=== PATIENT | female | born 1945 | race African-American/Black ===

== ENCOUNTER 2016-10-25 01:18 | Emergency (ER) | payer MEDICARE ==
[~2016-10-25] VITALS: Ht 167.6 cm; Wt 81.0 kg
[~2016-10-25 01:18] MED LIST: MOTRIN; WARF1TAB46
[2016-10-25] MEDS ORDERED: ACETAMINOPHEN 650MG/20.3ML UDC PO ONE (03:00)
[2016-10-25] MEDS ORDERED: TRAMADOL 50MG TABLET PO ONE (03:00)
[2016-10-25 07:37] VITALS: BP 145/85
[2016-10-25] MEDS ORDERED: ACETAMINOPHEN 325MG TABLET PO ONE (09:45)
== END 2016-10-25 13:45 | disposition home or self-care (01) ==
LOC: ER 01:26
DX: M79.604 Pain in right leg (principal); I10 Essential (primary) hypertension; G62.9 Polyneuropathy, unspecified; Z86.718 Personal history of other venous thrombosis and embolism; Z79.01 Long term (current) use of anticoagulants; Z88.2 Allergy status to sulfonamides; Z88.1 Allergy status to other antibiotic agents; Z88.5 Allergy status to narcotic agent; Z88.8 Allergy status to other drugs, medicaments and biological substances; Z88.6 Allergy status to analgesic agent
CPT/HCPCS: 93971; 99284

== ENCOUNTER 2017-01-01 20:08 | Emergency (ER) | payer MEDICARE ==
[~2017-01-01] VITALS: Ht 170.2 cm; Wt 73.0 kg
[2017-01-01] MEDS ORDERED: KETOROLAC 60MG/2ML VIAL IM ONE (22:15)
[2017-01-02] MEDS ORDERED: KETOROLAC 60MG/2ML VIAL IM ONE (09:30)
[2017-01-04 13:59] VITALS: BP 132/66
== END 2017-01-04 14:11 | disposition home or self-care (01) ==
LOC: ER 20:24
DX: M79.605 Pain in left leg (principal); M79.604 Pain in right leg; Z59.0 Homelessness; I10 Essential (primary) hypertension; Z90.49 Acquired absence of other specified parts of digestive tract; Z88.0 Allergy status to penicillin; Z79.01 Long term (current) use of anticoagulants; Z88.2 Allergy status to sulfonamides; Z88.6 Allergy status to analgesic agent; Z88.1 Allergy status to other antibiotic agents
CPT/HCPCS: 93970; 96372; 99284; J1885

== ENCOUNTER 2017-05-24 16:55 | Emergency (ER) | payer MEDICARE ==
[~2017-05-24] VITALS: Ht 170.2 cm; Wt 93.0 kg
[2017-05-24] MEDS ORDERED: KETOROLAC 30MG/ML VIAL IV ONE (18:45)
[2017-05-24 19:37] LABS: BASOPHILS % 0.9 % (0.0-2.0); EOSINOPHILS % 2.2 % (0.0-5.0); HEMATOCRIT. 30.7 % (36.0-48.0); HEMOGLOBIN. 10.1 g/dL (12.0-16.0); LYMPHOCYTES % 31.8 % (20.0-50.0); MEAN CORPUSCULAR HEMOGLOBIN 28.3 pg (28.0-32.0); MEAN CORPUSCULAR VOLUME 85.7 fL (81.0-99.0); MEAN PLATELET VOLUME 7.6 fl (7.4-10.4); NEUTROPHILS % 55.1 % (40.0-76.0); PLATELET 206 x1000/uL (130-400); RED BLOOD CELL COUNT 3.58 mill/uL (4.2-5.4); RED CELL DISTRIBUTION WIDTH 16.6 % (11.6-14.6)
[2017-05-24 19:43] LABS: INR 1.1; PROTHROMBIN TIME 11.8 sec (9.4-11.6)
[2017-05-24 19:49] LABS: CHLORIDE 112 mEq/L (98-107)
[2017-05-24 19:57] LABS: CARBON DIOXIDE 27 mEq/L (21-32); TROPONIN I < 0.02 ng/mL (0.00-0.04)
[2017-05-24 23:15] VITALS: BP 122/77
== END 2017-05-24 23:15 | disposition home or self-care (01) ==
LOC: ER 18:08
DX: I82.402 Acute embolism and thrombosis of unspecified deep veins of left lower extremity (principal); M25.562 Pain in left knee; G89.29 Other chronic pain; M25.561 Pain in right knee; E11.40 Type 2 diabetes mellitus with diabetic neuropathy, unspecified; I20.9 Angina pectoris, unspecified; I51.7 Cardiomegaly; M17.0 Bilateral primary osteoarthritis of knee; I10 Essential (primary) hypertension; Z88.1 Allergy status to other antibiotic agents; Z88.2 Allergy status to sulfonamides; Z88.6 Allergy status to analgesic agent; Z88.8 Allergy status to other drugs, medicaments and biological substances; Z79.01 Long term (current) use of anticoagulants; Z90.49 Acquired absence of other specified parts of digestive tract; Z86.711 Personal history of pulmonary embolism
CPT/HCPCS: 36415; 71010; 73560; 80053; 83880; 84484; 85025; 85610; 86850; 86900; 86901; 93005; 93970; 96374; 99285; J1885

== ENCOUNTER 2017-05-31 18:19 | Emergency (ER) | payer MEDICARE, MEDICAID ==
[~2017-05-31] VITALS: Ht 165.1 cm; Wt 75.0 kg
[2017-05-31 18:25] VITALS: BP 122/88
== END 2017-05-31 19:24 | disposition left against medical advice (07) ==
LOC: ER 18:19
DX: Z53.21 Procedure and treatment not carried out due to patient leaving prior to being seen by health care provider (principal); E11.9 Type 2 diabetes mellitus without complications; I20.9 Angina pectoris, unspecified; I10 Essential (primary) hypertension; Z88.0 Allergy status to penicillin; Z88.2 Allergy status to sulfonamides; Z88.3 Allergy status to other anti-infective agents; Z88.6 Allergy status to analgesic agent; Z88.8 Allergy status to other drugs, medicaments and biological substances; Z86.73 Personal history of transient ischemic attack (TIA), and cerebral infarction without residual deficits; Z90.49 Acquired absence of other specified parts of digestive tract; Z86.711 Personal history of pulmonary embolism

== ENCOUNTER 2017-07-22 22:15 | Emergency (ER) | payer MEDICARE, MEDICAID ==
[~2017-07-22] VITALS: Ht 167.6 cm; Wt 79.0 kg
[2017-07-23] MEDS ORDERED: KETOROLAC 60MG/2ML VIAL IM ONE (02:00)
[2017-07-23] MEDS ORDERED: HYDROCODONE/ACETAMINOPHEN 5/325MG TABLET PO ONE (02:15)
[2017-07-23 11:00] VITALS: BP 144/82
== END 2017-07-23 11:20 | disposition home or self-care (01) ==
LOC: ER 22:15
DX: M79.604 Pain in right leg (principal); M79.605 Pain in left leg; M79.89 Other specified soft tissue disorders; I10 Essential (primary) hypertension; I20.9 Angina pectoris, unspecified; E11.9 Type 2 diabetes mellitus without complications; Z79.01 Long term (current) use of anticoagulants; Z86.73 Personal history of transient ischemic attack (TIA), and cerebral infarction without residual deficits; Z88.0 Allergy status to penicillin; Z86.718 Personal history of other venous thrombosis and embolism; Z88.2 Allergy status to sulfonamides; Z88.8 Allergy status to other drugs, medicaments and biological substances; Z90.49 Acquired absence of other specified parts of digestive tract
CPT/HCPCS: 93005; 93970; 96372; 99284; J1885

== ENCOUNTER 2017-07-26 06:19 | Emergency (ER) | payer MEDICARE, MEDICAID ==
[~2017-07-26] VITALS: Ht 167.6 cm; Wt 77.2 kg
[2017-07-26] MEDS ORDERED: TRAMADOL 50MG TABLET PO ONE (07:00)
[2017-07-26 07:17] VITALS: BP 136/75
== END 2017-07-26 07:40 | disposition left against medical advice (07) ==
LOC: ER 06:19
DX: I82.401 Acute embolism and thrombosis of unspecified deep veins of right lower extremity (principal); I11.9 Hypertensive heart disease without heart failure; E11.9 Type 2 diabetes mellitus without complications; Z86.711 Personal history of pulmonary embolism; Z79.01 Long term (current) use of anticoagulants; Z90.49 Acquired absence of other specified parts of digestive tract; Z88.6 Allergy status to analgesic agent; Z88.5 Allergy status to narcotic agent; Z88.0 Allergy status to penicillin; Z88.2 Allergy status to sulfonamides
CPT/HCPCS: 99283

== ENCOUNTER 2017-08-29 21:53 | Emergency (ER) | payer MEDICARE, MEDICAID ==
[~2017-08-29] VITALS: Ht 167.6 cm; Wt 93.0 kg
[2017-08-30] MEDS ORDERED: APIXABAN 5 MG TABLET PO STA (01:39)
[2017-08-30] MEDS ORDERED: KETOROLAC 60MG/2ML VIAL IM ONE (01:45)
[2017-08-30] MEDS ORDERED: FUROSEMIDE 40MG TABLET PO ONE (01:45)
[2017-08-30 02:17] VITALS: BP 162/84
== END 2017-08-30 03:41 | disposition home or self-care (01) ==
LOC: ER 21:53
DX: G89.29 Other chronic pain (principal); I82.509 Chronic embolism and thrombosis of unspecified deep veins of unspecified lower extremity; E11.9 Type 2 diabetes mellitus without complications; I11.0 Hypertensive heart disease with heart failure; I50.9 Heart failure, unspecified; Z86.711 Personal history of pulmonary embolism; Z86.73 Personal history of transient ischemic attack (TIA), and cerebral infarction without residual deficits; Z79.01 Long term (current) use of anticoagulants; Z90.49 Acquired absence of other specified parts of digestive tract; Z88.6 Allergy status to analgesic agent; Z88.3 Allergy status to other anti-infective agents; Z88.5 Allergy status to narcotic agent; Z88.0 Allergy status to penicillin; Z88.2 Allergy status to sulfonamides
CPT/HCPCS: 96372; 99283; J1885

== ENCOUNTER 2017-08-30 06:49 | Emergency (ER) | payer MEDICARE, MEDICAID | END 2017-08-30 07:40 | disposition home or self-care (01) | LOC: ER 07:17 | DX: M79.606 Pain in leg, unspecified (principal); Z53.21 Procedure and treatment not carried out due to patient leaving prior to being seen by health care provider | CPT/HCPCS: J7040; Z7610 ==

== ENCOUNTER 2018-03-26 22:29 | Emergency (ER) | payer MEDICARE, MEDICAID ==
[~2018-03-26] VITALS: Ht 167.6 cm; Wt 82.0 kg
[2018-03-27] MEDS ORDERED: IBUPROFEN 600MG TABLET PO ONE (00:15)
[2018-03-27 01:48] LABS: BASOPHILS % 0.5 % (0.0-2.0); EOSINOPHILS % 1.6 % (0.0-5.0); HEMATOCRIT. 34.2 % (36.0-48.0); HEMOGLOBIN. 11.3 g/dL (12.0-16.0); LYMPHOCYTES % 24.5 % (20.0-50.0); MEAN CORPUSCULAR HEMOGLOBIN 27.2 pg (28.0-32.0); MEAN CORPUSCULAR VOLUME 82.6 fL (81.0-99.0); MEAN PLATELET VOLUME 7.6 fl (7.4-10.4); MONOCYTES % 9.8 % (2.0-8.0); NEUTROPHILS % 63.6 % (40.0-76.0); PLATELET 285 x1000/uL (130-400); RED BLOOD CELL COUNT 4.14 mill/uL (4.2-5.4); RED CELL DISTRIBUTION WIDTH 16.2 % (11.6-14.6)
[2018-03-27 01:52] LABS: CHLORIDE 105 mEq/L (98-107)
[2018-03-27] MEDS ORDERED: POTASSIUM CHLORIDE 20MEQ TABLET SR PO ONE (02:00)
[2018-03-27 04:22] VITALS: BP 148/85
== END 2018-03-27 05:07 | disposition home or self-care (01) ==
LOC: ER 22:29
DX: M79.1 Myalgia (principal); E87.6 Hypokalemia; I11.9 Hypertensive heart disease without heart failure; E11.9 Type 2 diabetes mellitus without complications; Z86.718 Personal history of other venous thrombosis and embolism; Z86.711 Personal history of pulmonary embolism; Z88.0 Allergy status to penicillin; Z88.2 Allergy status to sulfonamides; Z90.49 Acquired absence of other specified parts of digestive tract; Z79.01 Long term (current) use of anticoagulants; Z79.84 Long term (current) use of oral hypoglycemic drugs; Z86.73 Personal history of transient ischemic attack (TIA), and cerebral infarction without residual deficits; Z88.3 Allergy status to other anti-infective agents; Z88.5 Allergy status to narcotic agent
CPT/HCPCS: 36415; 80053; 85025; 99284

== ENCOUNTER 2018-03-27 07:19 | Emergency (ER) | payer MEDICARE, MEDICAID ==
[~2018-03-27] VITALS: Ht 170.2 cm; Wt 88.0 kg
[2018-03-27 10:14] VITALS: BP 131/88
== END 2018-03-27 12:32 | disposition left against medical advice (07) ==
LOC: ER 07:19
DX: Z53.21 Procedure and treatment not carried out due to patient leaving prior to being seen by health care provider (principal)

== ENCOUNTER 2019-01-08 15:24 | Emergency (ER) | payer MEDICARE, MEDICAID ==
[~2019-01-08] VITALS: Ht 160 cm; Wt 101.0 kg
[2019-01-08 15:42] VITALS: BP 142/64
[2019-01-16] MEDS ORDERED: APIX5TAB MT (22:53)
== END 2019-01-08 18:58 | disposition left against medical advice (07) ==
LOC: ER 15:24
DX: F43.0 Acute stress reaction (principal); I11.9 Hypertensive heart disease without heart failure; Z86.73 Personal history of transient ischemic attack (TIA), and cerebral infarction without residual deficits; Z86.718 Personal history of other venous thrombosis and embolism; Z90.89 Acquired absence of other organs; Z79.84 Long term (current) use of oral hypoglycemic drugs; Z88.6 Allergy status to analgesic agent; Z88.5 Allergy status to narcotic agent; Z88.0 Allergy status to penicillin; Z88.2 Allergy status to sulfonamides; Z86.711 Personal history of pulmonary embolism; Z79.01 Long term (current) use of anticoagulants
CPT/HCPCS: 99281; 99284

== ENCOUNTER 2019-01-09 06:40 | Emergency (ER) | payer MEDICARE, MEDICAID ==
[~2019-01-09] VITALS: Ht 167.6 cm; Wt 91.0 kg
[2019-01-09 09:58] LABS: CLARITY URINE CLEAR (CLEAR); COLOR URINE YELLOW (YELLOW); KETONES URINE TRACE (NEGATIVE); LEUKOCYTE ESTERASE URINE NEGATIVE (NEGATIVE); NITRITE URINE NEGATIVE (NEGATIVE); OCCULT BLOOD URINE NEGATIVE (NEGATIVE); PH URINE 5.5 (4.5-8.0); PROTEIN URINE NEGATIVE (NEGATIVE); SPECIFIC GRAVITY URINE 1.026 (1.005-1.030); UROBILINOGEN URINE 0.2 E.U./dL (0.2-1.0)
[2019-01-09 12:09] VITALS: BP 140/101
[2019-01-16] MEDS ORDERED: APIX5TAB MT (22:53)
== END 2019-01-09 12:10 | disposition home or self-care (01) ==
LOC: ER 06:40
DX: Z00.00 Encounter for general adult medical examination without abnormal findings (principal); I10 Essential (primary) hypertension; Z90.49 Acquired absence of other specified parts of digestive tract; Z90.89 Acquired absence of other organs; Z86.718 Personal history of other venous thrombosis and embolism; Z88.2 Allergy status to sulfonamides; Z88.0 Allergy status to penicillin; Z88.5 Allergy status to narcotic agent; Z88.9 Allergy status to unspecified drugs, medicaments and biological substances; Z88.1 Allergy status to other antibiotic agents
CPT/HCPCS: 99282; 99283

== ENCOUNTER 2019-01-09 19:58 | Emergency (ER) | payer MEDICARE, MEDICAID ==
[~2019-01-09] VITALS: Ht 167.6 cm; Wt 94.0 kg
[2019-01-10] MEDS ORDERED: ACETAMINOPHEN 325MG TABLET PO ONE (02:00)
[2019-01-10 09:54] VITALS: BP 145/82
== END 2019-01-10 10:28 | disposition home or self-care (01) ==
LOC: ER 19:58
DX: M79.642 Pain in left hand (principal); M79.641 Pain in right hand
CPT/HCPCS: 99282

== ENCOUNTER 2019-01-10 12:37 | Emergency (ER) | payer MEDICARE, MEDICAID ==
[~2019-01-10] VITALS: Ht 167.6 cm; Wt 93.0 kg
[2019-01-11] MEDS ORDERED: ACETAMINOPHEN 325MG TABLET PO ONE ×2 (01:15→12:30)
[2019-01-11 01:46] LABS: HEMATOCRIT. 29.5 % (36.0-48.0); HEMOGLOBIN. 10.2 g/dL (12.0-16.0); MEAN CORPUSCULAR HEMOGLOBIN 30.8 pg (28.0-32.0); MEAN CORPUSCULAR VOLUME 89.3 fL (81.0-99.0); MEAN PLATELET VOLUME 7.3 fl (7.4-10.4); PLATELET 166 x1000/uL (130-400); RED BLOOD CELL COUNT 3.31 mill/uL (4.2-5.4)
[2019-01-11 01:56] LABS: CHLORIDE 108 mEq/L (98-107)
[2019-01-11] MEDS ORDERED: POTASSIUM CHLORIDE 20MEQ TABLET SR PO NR (02:15)
[2019-01-11] MEDS ORDERED: POTASSIUM CHLORIDE 20MEQ TABLET SR PO SCH (02:15)
[2019-01-11 02:42] LABS: PLATELET ESTIMATE NORMAL
[2019-01-11] MEDS ORDERED: POTASSIUM CHLORIDE 20MEQ TABLET SR PO ONE (06:30)
[2019-01-11 12:47] VITALS: BP 133/58
[2019-01-16] MEDS ORDERED: APIX5TAB MT (22:53)
== END 2019-01-11 17:00 | disposition home or self-care (01) ==
LOC: ER 12:37
DX: E87.6 Hypokalemia (principal); Z59.0 Homelessness
CPT/HCPCS: 36415; 73130; 80048; 84132; 99284

== ENCOUNTER 2019-03-04 22:45 | Emergency (ER) | payer MEDICARE, MEDICAID ==
[~2019-03-04 22:45] MED LIST changes: +APIX5TAB MT; -MOTRIN; -WARF1TAB46
== END 2019-03-05 01:30 | disposition left against medical advice (07) ==
LOC: ER 22:45
DX: Z53.21 Procedure and treatment not carried out due to patient leaving prior to being seen by health care provider (principal)

== ENCOUNTER 2019-04-19 21:20 | Emergency (ER) | payer MEDICARE, MEDICAID ==
[~2019-04-19] VITALS: Ht 165.1 cm; Wt 95.0 kg
[2019-04-19 21:46] VITALS: BP 118/74
[2019-04-20] MEDS ORDERED: ACETAMINOPHEN 325MG TABLET PO ONE (00:15)
== END 2019-04-20 07:03 | disposition home or self-care (01) ==
LOC: ER 21:20
DX: R07.89 Other chest pain (principal); M25.511 Pain in right shoulder; M25.512 Pain in left shoulder; Z59.0 Homelessness; Z88.8 Allergy status to other drugs, medicaments and biological substances; Z88.0 Allergy status to penicillin; Z88.2 Allergy status to sulfonamides; Z88.6 Allergy status to analgesic agent; Z88.5 Allergy status to narcotic agent; Z88.9 Allergy status to unspecified drugs, medicaments and biological substances; Z86.718 Personal history of other venous thrombosis and embolism; Z85.9 Personal history of malignant neoplasm, unspecified; Y08.89XA Assault by other specified means, initial encounter; Y93.89 Activity, other specified; Y92.89 Other specified places as the place of occurrence of the external cause; Y99.8 Other external cause status
CPT/HCPCS: 71111; 73030; 93005; 99283

== ENCOUNTER 2019-05-16 08:27 | Emergency (ER) | payer MEDICARE, MEDICAID | END 2019-05-16 09:05 | disposition left against medical advice (07) | LOC: ER 09:04 | DX: Z53.21 Procedure and treatment not carried out due to patient leaving prior to being seen by health care provider (principal) ==

== ENCOUNTER 2019-08-10 09:20 | Emergency (ER) | payer MEDICARE, MEDICAID ==
[~2019-08-10] VITALS: Ht 154.9 cm; Wt 80.0 kg
[2019-08-10] MEDS ORDERED: IBUPROFEN 600MG TABLET PO STA (09:44)
[2019-08-10 10:31] LABS: HEMATOCRIT. 32.1 % (36.0-48.0); HEMOGLOBIN. 10.5 g/dL (12.0-16.0); MEAN CORPUSCULAR HEMOGLOBIN 28.3 pg (28.0-32.0); MEAN PLATELET VOLUME 7.7 fl (7.4-10.4); PLATELET 203 x1000/uL (130-400); RED BLOOD CELL COUNT 3.69 mill/uL (4.2-5.4); RED CELL DISTRIBUTION WIDTH 16.3 % (11.6-14.6)
[2019-08-10 10:41] LABS: CHLORIDE 111 mEq/L (98-107)
[2019-08-10 11:00] LABS: PLATELET ESTIMATE NORMAL
[2019-08-10 13:28] VITALS: BP 130/76
== END 2019-08-10 13:32 | disposition home or self-care (01) ==
LOC: ER 09:20
DX: M79.18 Myalgia, other site (principal); Z88.2 Allergy status to sulfonamides; Z88.6 Allergy status to analgesic agent; Z88.0 Allergy status to penicillin; Z88.5 Allergy status to narcotic agent; Z88.9 Allergy status to unspecified drugs, medicaments and biological substances; Z88.1 Allergy status to other antibiotic agents; Z86.718 Personal history of other venous thrombosis and embolism
CPT/HCPCS: 36415; 71045; 80048; 85025; 93005; 99284

== ENCOUNTER 2019-10-02 03:28 | Inpatient (IN) | payer MEDICARE, MEDICAID ==
[~2019-10-02] VITALS: Ht 167.6 cm; Wt 77.1 kg
[2019-10-02] MEDS ORDERED: SODIUM CHLORIDE 0.9% 1,000 ML IV ONE (04:24)
[2019-10-02] MEDS ORDERED: LEVETIRACETAM 1000MG/100ML 100 ML IV ONE (04:30)
[2019-10-02 05:18] LABS: CHLORIDE 109 mEq/L (98-107)
[2019-10-02 05:20] LABS: BASOPHILS % 0.7 % (0.0-2.0); EOSINOPHILS % 2.4 % (0.0-5.0); HEMOGLOBIN. 10.9 g/dL (12.0-16.0); LYMPHOCYTES % 11.9 % (20.0-50.0); MEAN CORPUSCULAR VOLUME 87.6 fL (81.0-99.0); MEAN PLATELET VOLUME 7.9 fl (7.4-10.4); MONOCYTES % 10.2 % (2.0-8.0); NEUTROPHILS % 74.8 % (40.0-76.0); PLATELET 211 x1000/uL (130-400); RED BLOOD CELL COUNT 3.77 mill/uL (4.2-5.4); RED CELL DISTRIBUTION WIDTH 17.1 % (11.6-14.6)
[2019-10-02 05:25] LABS: ETHANOL BLOOD < 10 mg/dL
[2019-10-02 05:27] LABS: CREATINE KINASE 84 IU/L (26-192)
[2019-10-02 05:35] LABS: VALPROIC ACID < 3.0 ug/mL (50-100)
[2019-10-02 05:47] LABS: CARBAMAZEPINE < 0.5 ug/mL (4-12)
[2019-10-02 07:15] LABS: CLARITY URINE CLEAR (CLEAR); COLOR URINE YELLOW (YELLOW); KETONES URINE NEGATIVE (NEGATIVE); LEUKOCYTE ESTERASE URINE NEGATIVE (NEGATIVE); NITRITE URINE NEGATIVE (NEGATIVE); OCCULT BLOOD URINE NEGATIVE (NEGATIVE); PROTEIN URINE NEGATIVE (NEGATIVE); SPECIFIC GRAVITY URINE 1.004 (1.005-1.030); UROBILINOGEN URINE 0.2 E.U./dL (0.2-1.0)
[2019-10-02] MEDS ORDERED: LORAZEPAM 2MG/ML CPJ IV PRN (07:15)
[2019-10-02] MEDS ORDERED: GUAIFENESIN 200MG/10ML SUGAR FREE UDC PO PRN (07:15)
[2019-10-02] MEDS ORDERED: DOCUSATE SODIUM 100MG CAPSULE PO PRN (07:15)
[2019-10-02] MEDS ORDERED: IPRATROPIUM/ALBUTEROL 0.5-3(2.5)MG/3ML NEB NEB PRN (07:15)
[2019-10-02] MEDS ORDERED: ONDANSETRON HCL 4MG/2ML INJ IV PRN (07:15)
[2019-10-02] MEDS ORDERED: NA PHOS,M-B/NA PHOS,DI-BA ENEMA 118ML PR PRN (07:15)
[2019-10-02] MEDS ORDERED: CLONIDINE 0.1MG TABLET PO PRN (07:15)
[2019-10-02] MEDS ORDERED: NITROGLYCERIN 0.4MG TABLET SL SL PRN (07:15)
[2019-10-02] MEDS ORDERED: MAGNESIUM/ALUMINUM HYDROXIDE/SIMETHICONE 30ML UDC PO PRN (07:15)
[2019-10-02 07:35] LABS: *AMPHETAMINES SCREEN URINE NEGATIVE (NEGATIVE); *BARBITURATES SCREEN URINE NEGATIVE (NEGATIVE); *BENZODIAZEPINES SCREEN URINE NEGATIVE (NEGATIVE); *COCAINE SCREEN URINE NEGATIVE (NEGATIVE); METHADONE URINE SCREEN NEGATIVE (NEGATIVE); OPIATES URINE SCREEN NEGATIVE (NEGATIVE)
[2019-10-02 07:36] LABS: CANNABINOID URINE SCREEN NEGATIVE (NEGATIVE); PHENCYCLIDINE URINE SCREEN NEGATIVE (NEGATIVE)
[2019-10-02 10:46] LABS: TOTAL IRON BINDING CAPACITY 414 ug/dL (250-450)
[2019-10-02 10:47] LABS: LDL CHOLESTEROL 76 mg/dL (5-100)
[2019-10-02 10:48] LABS: HDL CHOLESTEROL 82 mg/dL (40-59)
[2019-10-02] MEDS: FAMOTIDINE 20MG TABLET PO SCH ×2 (11:04→21:19)
[2019-10-02] MEDS: ENOXAPARIN 40MG/0.4ML SYR SUBCUT SCH (11:04)
[2019-10-02] MEDS: LEVETIRACETAM 500MG TABLET PO SCH ×2 (11:47→21:19)
[2019-10-02 16:05] LABS: CREATINE KINASE 128 IU/L (26-192)
[2019-10-02 16:06] LABS: CREATINE KINASE MB FRACTION < 1.0 ng/mL (0.5-3.6)
[2019-10-02 20:00] VITALS: BP 148/80
[2019-10-02] MEDS ORDERED: ZOLPIDEM TARTRATE 5MG TABLET PO PRN (21:00)
[2019-10-03] VITALS: BP 118/70
[2019-10-03 00:35] LABS: CREATINE KINASE 114 IU/L (26-192)
[2019-10-03 00:36] LABS: CREATINE KINASE MB FRACTION < 1.0 ng/mL (0.5-3.6)
[2019-10-03 04:00] VITALS: BP 138/75
[2019-10-03 08:00] VITALS: BP 139/64
[2019-10-03] MEDS: FAMOTIDINE 20MG TABLET PO SCH ×2 (08:34→22:05)
[2019-10-03] MEDS: ENOXAPARIN 40MG/0.4ML SYR SUBCUT SCH (08:34)
[2019-10-03] MEDS: LEVETIRACETAM 500MG TABLET PO SCH ×2 (08:34→22:05)
[2019-10-03 12:00] VITALS: BP 131/66
[2019-10-03 19:33] LABS: FOLIC ACID (FOLATE) SERUM 14.2 ng/mL (>5.38)
[2019-10-03 20:00] VITALS: BP 136/70
[2019-10-04] VITALS: BP 143/74
[2019-10-04 04:00] VITALS: BP 157/87
[2019-10-04 08:14] VITALS: BP 157/76
[2019-10-04] MEDS: FAMOTIDINE 20MG TABLET PO SCH ×2 (08:50→20:21)
[2019-10-04] MEDS: LEVETIRACETAM 500MG TABLET PO SCH ×2 (08:52→20:21)
[2019-10-04] MEDS: ENOXAPARIN 40MG/0.4ML SYR SUBCUT SCH (08:54)
[2019-10-04 11:52] VITALS: BP 153/81
[2019-10-04 12:14] LABS: CHLORIDE 109 mEq/L (98-107); HEMATOCRIT. 31.5 % (36.0-48.0); HEMOGLOBIN. 10.5 g/dL (12.0-16.0); MEAN CORPUSCULAR HEMOGLOBIN 28.7 pg (28.0-32.0); MEAN CORPUSCULAR VOLUME 86.1 fL (81.0-99.0); MEAN PLATELET VOLUME 8.3 fl (7.4-10.4); PLATELET 215 x1000/uL (130-400); RED BLOOD CELL COUNT 3.65 mill/uL (4.2-5.4); RED CELL DISTRIBUTION WIDTH 16.8 % (11.6-14.6)
[2019-10-04] MEDS: KETOROLAC 15MG/ML VIAL IV PRN ×2 (12:21→21:15)
[2019-10-04 15:45] VITALS: BP 146/86
[2019-10-04 19:05] LABS: PLATELET ESTIMATE NORMAL
[2019-10-04 20:00] VITALS: BP 116/55
[2019-10-05 08:00] VITALS: BP 140/61
[2019-10-05] MEDS: ENOXAPARIN 40MG/0.4ML SYR SUBCUT SCH (09:57)
[2019-10-05] MEDS: FAMOTIDINE 20MG TABLET PO SCH ×2 (09:57→21:05)
[2019-10-05] MEDS: LEVETIRACETAM 500MG TABLET PO SCH ×2 (09:57→21:05)
[2019-10-05] MEDS: ACETAMINOPHEN 325MG TABLET PO PRN (09:58)
[2019-10-05 17:55] VITALS: BP 132/66
[2019-10-06 08:00] VITALS: BP 160/96
[2019-10-06] MEDS: LEVETIRACETAM 500MG TABLET PO SCH ×2 (09:20→21:20)
[2019-10-06] MEDS: ENOXAPARIN 40MG/0.4ML SYR SUBCUT SCH (09:20)
[2019-10-06] MEDS: FAMOTIDINE 20MG TABLET PO SCH ×2 (09:20→21:19)
[2019-10-06 12:00] VITALS: BP 139/70
[2019-10-06 16:00] VITALS: BP 151/90
[2019-10-06] MEDS: ACETAMINOPHEN 325MG TABLET PO PRN (19:52)
[2019-10-06 20:23] VITALS: BP 131/62
[2019-10-07 08:00] VITALS: BP 133/73
[2019-10-07] MEDS: LEVETIRACETAM 500MG TABLET PO SCH ×2 (09:14→22:01)
[2019-10-07] MEDS: ENOXAPARIN 40MG/0.4ML SYR SUBCUT SCH (09:14)
[2019-10-07] MEDS: FAMOTIDINE 20MG TABLET PO SCH ×2 (09:14→22:01)
[2019-10-08] VITALS: BP 134/84
[2019-10-08 08:00] VITALS: BP 157/95
[2019-10-08] MEDS: FAMOTIDINE 20MG TABLET PO SCH (09:13)
[2019-10-08] MEDS: LEVETIRACETAM 500MG TABLET PO SCH (09:13)
[2019-10-08] MEDS: ENOXAPARIN 40MG/0.4ML SYR SUBCUT SCH (09:14)
[2019-10-08 11:34] LABS: CHLORIDE 111 mEq/L (98-107)
[2019-10-08 16:04] VITALS: BP 157/95
== END 2019-10-08 18:03 | DRG 45 ==
LOC: ER 03:28 → SUPCPDRO 07:02 → 6WST 07:03 → ENRESERV 18:34 → 6EST 10-07 10:07
PROVIDERS: ADMIT Internal Medicine; ATTEND Internal Medicine
DX: I63.9 Cerebral infarction, unspecified (principal); G92 Toxic encephalopathy; E44.1 Mild protein-calorie malnutrition; M48.02 Spinal stenosis, cervical region; G40.909 Epilepsy, unspecified, not intractable, without status epilepticus; D64.9 Anemia, unspecified; G31.84 Mild cognitive impairment of uncertain or unknown etiology; M16.0 Bilateral primary osteoarthritis of hip; M17.0 Bilateral primary osteoarthritis of knee; I11.9 Hypertensive heart disease without heart failure; R26.89 Other abnormalities of gait and mobility; M50.33 Other cervical disc degeneration, cervicothoracic region; I25.2 Old myocardial infarction; Z59.0 Homelessness; Z91.14 Patient's other noncompliance with medication regimen; Z88.2 Allergy status to sulfonamides; Z88.1 Allergy status to other antibiotic agents; Z88.8 Allergy status to other drugs, medicaments and biological substances; Z88.6 Allergy status to analgesic agent; Z68.27 Body mass index [BMI] 27.0-27.9, adult
CPT/HCPCS: 36415; 70551; 71045; 73502; 80053; 80061; 80156; 80165; 80185; 80305; 80320; 81003; 82140; 82550; 82553; 82607; 82746; 83036; 83540; 83550; 84443; 84484; 85025; 85379; 93005; 93880; 93970; 93971; 97116; 97161; 97166; 99285; J1650; J1885; J1953; J7030; G0480